=== PATIENT | male | born 1985 | race Two or more races ===

== ENCOUNTER 2017-03-25 18:10 | Emergency (ER) | payer OTHER ==
[~2017-03-25] VITALS: Ht 162.6 cm; Wt 65.0 kg
[2017-03-25] MEDS ORDERED: ACETAMINOPHEN 325 MG TABLET PO ONE (19:00)
[2017-03-25] MEDS ORDERED: KETOROLAC TROMETHAMINE 30 MG/ML VIAL IM ONE (19:00)
[2017-03-25 20:23] LABS: APPEARANCE,URINE CLEAR (CLEAR); GLUCOSE, URINE (UA) NEGATIVE (NEGATIVE); KETONES,URINE NEGATIVE (NEGATIVE); LEUKOCYTE ESTERASE ,URINE NEGATIVE (NEGATIVE); OCCULT BLOOD,URINE NEGATIVE (NEGATIVE); PROTEIN,URINE NEGATIVE (NEGATIVE)
[2017-03-25 20:30] LABS: ADD UA MICROSCOPIC NO
[2017-03-25 21:07] LABS: INFLUENZA TYPE B NEGATIVE FOR TYPE B (NEGATIVE)
[2017-03-25 21:39] VITALS: BP 105/65
== END 2017-03-25 21:40 | disposition home or self-care (01) ==
LOC: EMS 18:12
DX: R51 Headache (principal); L98.9 Disorder of the skin and subcutaneous tissue, unspecified; J40 Bronchitis, not specified as acute or chronic
CPT/HCPCS: 81003; 87804; 96372; 99284; J1885